=== PATIENT | female | born 1985 | race African-American/Black ===

== ENCOUNTER 2022-09-12 20:28 | Emergency (ER) | payer OTHER, SELFPAY ==
[2022-09-12 20:32] VITALS: BP 170/101; PULSE 98; RESP 22; TEMP 36.8; O2SAT 99
--- NOTE | 2022-09-12 21:05 | ECG_ITS ---
Measurements Intervals [place] Rate: 72 P: 44 AR: 214 QRS: 3 QRSD: 87 T: 14 QT: 359 QTc: 395 Interpretive Statements SINUS RHYTHM WITH FIRST DEGREE AV BLOCK MINIMAL Q WAVES- HIGH LATERAL LEADS BORDERLINE ECG NO PREVIOUS ECG AVAILABLE FOR COMPARISON Electronically Signed On 09-13-2022 7:46:34 CDT by Redd Owens D.O.
[2022-09-12 21:30] VITALS: BP 138/82; PULSE 70; RESP 15; O2SAT 100
[2022-09-12 21:41] LABS: Basophils Absolute Auto 0.1 K/mm3 (0.0-0.1); Basophils Percent Auto 0.7 % (0.2-1.2); Eosinophils Absolute Auto 0.2 K/mm3 (0-0.3); Eosinophils Percent Auto 2.5 % (0-4.4); Hematocrit 37.9 % (37.0-47.0); Hemoglobin 11.9 g/dL (12.0-15.0); Immature Granulocyte Absolute 0.02 K/mm3 (0.00-0.031); Immature Granulocyte Percent A 0.3 % (0-0.5); Lymphocytes Absolute Auto 2.72 K/mm3 (0.9-3.2); Lymphocytes Percent Auto 37.6 % (18.3-44.2); Mean Corpuscular HGB Conc 31.4 g/dl (32-36); Mean Corpuscular Hemoglobin 27.5 pg (26-34); Mean Corpuscular Volume 87.5 fl (80-100); Mean Platelet Volume 9.1 fl (7.4-10.4); Monocytes Absolute Auto 0.6 K/mm3 (0.1-0.6); Neutrophils Absolute Auto 3.7 K/mm3 (1.3-6.7); Neutrophils Percent Auto 50.9 % (45.5-73.1); Platelet Count Result 345 k/mm3 (150-375); Red Blood Count 4.33 M/mm3 (4.2-5.4); Red Cell Distribution Width 15.2 % (11.5-14.5); White Blood Count 7.2 K/mm3 (4.5-10.0)
[2022-09-12 21:52] LABS: Alanine Aminotransferase 20 U/L (6-35); Alkaline Phosphatase 100 U/L (38-126); Anion Gap 5 mmol/L (8-16); Aspartate Amino Transferase 22 U/L (14-36); Bilirubin,Total 0.4 mg/dL (0.2-1.3); Blood Urea Nitrogen 12 mg/dL (7-17); Calcium 9.2 mg/dL (8.4-10.2); Carbon Dioxide 29 mmol/L (22-30); Chloride 103 mmol/L (98-107); Estimated CRCL calculation 150 ml/min; Estimated Glomerular Filt Rate > 60; Glucose 114 mg/dL (65-110); Sodium 137 mmol/L (137-145)
[2022-09-12 22:03] LABS: NT Pro B Type Natriuretic Pept < 20 pg/mL (19.9-100); Troponin I < 0.012 ng/mL (0.000-0.034)
--- NOTE | 2022-09-12 22:16 | ED.GENADULT ---
HPI - General Adult General Chief complaint: Unspecified Stated complaint: swelling of legs and feet Time Seen by Provider: 09/12/22 20:56 Source: patient and family Mode of arrival: ambulatory Limitations: no limitations History of Present Illness HPI narrative: 37-year-old with morbid obesity here with complaints of leg swelling for past few weeks. Patient states that she states most of the day working from home on computer. Noticed swelling in her legs more on the right compared to the left. Also complains of intermittent chest pain and occasional shortness of breath. Onset (ago): week(s) Location: lower extremity Severity: moderate Associated symptoms: denies other symptoms Related Data Allergies Allergy/AdvReac Type Severity Reaction Status Date / Time Penicillins Allergy Other Verified 09/12/22 22:43 Review of Systems Review of Systems: All systems reviewed & are unremarkable except as noted in HPI and below Constitutional: Constitutional: Reports no additional constitutional complaints Eyes: Eyes: Reports no additional eye complaints ENT: Reports system reviewed and no additional complaints, except as documented Cardiovascular: Cardiovascular: Reports no additional cardiovascular complaints Respiratory: Respiratory: Reports no additional respiratory complaints Musculoskeletal: Musculoskeletal: Reports no additional musculoskeletal complaints Exam Narrative: GENERAL: Well-appearing, morbidly obese, and in no acute distress. HEAD: Normocephalic, atraumatic. EYES: PERRLA and EOMI. ENT: Nares clear, no rhinorrhea or epistaxis. Mucous membranes moist. NECK: Supple. CHEST: Clear to auscultation. No respiratory distress. HEART: Regular rate and rhythm. No murmur heard. Normal peripheral pulses. ABDOMEN: Soft, nontender, nondistended, normal active bowel sounds. EXTREMITIES: Normal range of motion. 1+ edema SKIN: Warm, dry, no rash. NEURO: No focal deficits. Alert and oriented x3. PSYCH: Normal mood and affect. Course Course Emergency Course: Notified patient and the family about her lab work, EKG findings. Recommended to elevate her legs, take diuretic as needed and cut down on salt intake. Vital Signs Vital signs: Vital Signs Temperature 36.8 C 09/12/22 20:32 Pulse Rate 98 09/12/22 20:32 Respiratory Rate 22 H 09/12/22 20:32 Blood Pressure 170/101 H 09/12/22 20:32 Pulse Oximetry 99 09/12/22 20:32 Oxygen Delivery Room Air 09/12/22 20:32 Temperature 36.8 C 09/12/22 20:32 Pulse Rate 72 09/12/22 22:33 Respiratory Rate 15 09/12/22 22:33 Blood Pressure 134/78 09/12/22 22:33 Pulse Oximetry 100 09/12/22 22:33 Oxygen Delivery Room Air 09/12/22 20:32 Medical Decision Making Differential Diagnosis Differential Diagnosis: Gravitational edema, CHF, DVT Vital Signs Vital Signs: Vital Signs Temperature 36.8 C 09/12/22 20:32 Pulse Rate 98 09/12/22 20:32 Respiratory Rate 22 H 09/12/22 20:32 Blood Pressure 170/101 H 09/12/22 20:32 Pulse Oximetry 99 09/12/22 20:32 Oxygen Delivery Room Air 09/12/22 20:32 Temperature 36.8 C 09/12/22 20:32 Pulse Rate 72 09/12/22 22:33 Respiratory Rate 15 09/12/22 22:33 Blood Pressure 134/78 09/12/22 22:33 Pulse Oximetry 100 09/12/22 22:33 Oxygen Delivery Room Air 09/12/22 20:32 Lab Data 09/12/22 21:24 09/12/22 21:24 Labs: Lab Results 09/12/22 Range/Units 21:24 WBC 7.2 (4.5-10.0) K/mm3 RBC 4.33 (4.2-5.4) M/mm3 Hgb 11.9 L (12.0-15.0) g/dL Hct 37.9 (37.0-47.0) % MCV 87.5 (80-100) fl MCH 27.5 (26-34) pg MCHC 31.4 L (32-36) g/dl RDW 15.2 H (11.5-14.5) % Plt Count 345 (150-375) k/mm3 MPV 9.1 (7.4-10.4) fl Immature Gran % (Auto) 0.3 (0-0.5) % Neut % (Auto) 50.9 (45.5-73.1) % Lymph % (Auto) 37.6 (18.3-44.2) % [place] % (Auto) 8.0 (2.6-8.5) % Eos % (Auto) 2.5 (0-4.4) % Baso % (Auto) 0.7 (0.2-1.
[2022-09-12 22:33] VITALS: BP 134/78; PULSE 72; RESP 15; O2SAT 100
[2022-09-12 22:57] VITALS: BP 138/70; PULSE 68; RESP 15; O2SAT 100
== END 2022-09-12 22:58 | disposition home or self-care (01) ==
PROVIDERS: Emergency Provider Family Medicine
DX: R60.0 Localized edema (principal); R06.02 Shortness of breath
CPT/HCPCS: 36415; 80053; 83880; 84484; 85025; 85380; 93005; 99284